=== PATIENT | male | born 1945 | race African-American/Black ===

== ENCOUNTER 2017-06-15 15:44 | Emergency (ER) | payer MEDICARE, OTHER ==
[~2017-06-15] VITALS: Ht 188 cm; Wt 84.0 kg
[~2017-06-15 15:44] MED LIST: ASPI-867 PO; BISA-81 PO; GLYC-24 RC; HYDR12.529 PO; OMEP20TA2 PO; SODI650T PO
[2017-06-15 22:10] VITALS: BP 132/89
== END 2017-06-15 22:35 | disposition left against medical advice (07) ==
LOC: ER 15:51
DX: R05 Cough (principal); Z53.21 Procedure and treatment not carried out due to patient leaving prior to being seen by health care provider

== ENCOUNTER 2017-07-30 15:41 | Emergency (ER) | payer MEDICARE ==
[~2017-07-30] VITALS: Ht 188 cm; Wt 95.0 kg
[2017-07-30 15:56] VITALS: BP 155/100
== END 2017-07-30 19:14 | disposition home or self-care (01) ==
LOC: ER 16:00
DX: Z76.0 Encounter for issue of repeat prescription (principal); I10 Essential (primary) hypertension; E78.00 Pure hypercholesterolemia, unspecified; Z79.82 Long term (current) use of aspirin; Z86.73 Personal history of transient ischemic attack (TIA), and cerebral infarction without residual deficits
CPT/HCPCS: 99283